=== PATIENT | female | born 2000 | race African-American/Black ===

== ENCOUNTER 2023-12-29 18:31 | Outpatient (REF) | payer MEDICAID, SELFPAY ==
[2023-12-29 15:49] LABS: HCT 41.7 % (36.0-46.0); HGB 14.4 g/dL (11.2-15.7); MCH 29.1 pg (27.0-33.0); MCHC 34.5 % (32.0-36.0); MCV 84 fL (80-95); MPV 10.4 fL (8.0-11.0); Platelet Count 327 10^3/uL (130-400); RBC 4.94 10^6/uL (3.93-5.22); RDW 11.9 % (11.7-14.6); RDW-SD 35.8 fL; WBC 6.65 10^3/uL (4.4-10.8)
[2023-12-29 16:01] LABS: Iron 76 ug/dL (50-170); Total Iron Binding Capacity 349 ug/dL (250-450); Transferrin Sat 22 % (15-50)
[2023-12-29 16:39] LABS: ALT 19 U/L (14-59); AST 13 U/L (15-37); Albumin 4.3 g/dL (3.4-5.0); Alkaline Phosphatase 47 U/L (46-116); Anion Gap 11.2 mmol/L (3-11); BUN 6 mg/dL (7-18); Bilirubin, Total 0.5 mg/dL (0.2-1.0); CO2 24.8 mmol/L (21.0-32.0); CREATININE 0.6 mg/dL (0.55-1.02); Calcium 9.5 mg/dL (8.5-10.1); Chloride 103 mmol/L (98-107); Estimated GFR 128.46 (mL/min/1.73m2); Ferritin 34 ng/mL (8-252); Glucose 109 mg/dL (74-106); Potassium 3.9 mmol/L (3.5-5.1); Sodium 139 mmol/L (136-145); TSH 1.45 uIU/mL (0.36-3.74); Total Protein 7.6 g/dL (6.4-8.2); Vitamin B12 240 pg/mL (193-986)
== END 2023-12-29 18:32 | disposition home or self-care (01) ==
LOC: NCHCN 18:31
PROVIDERS: PCP Nurse Practitioner Family; Visit Provider Nurse Practitioner Family
DX: R53.83 Other fatigue (principal)
CPT/HCPCS: 80053; 85027; 82607; 82728; 83540; 83550; 84443